=== PATIENT | female | born 1965 | race Caucasian/White ===

== ENCOUNTER 2017-11-07 19:05 | Emergency (ER) | payer BC ==
[~2017-11-07] VITALS: Ht 157.5 cm; Wt 100.0 kg
[2017-11-07 19:07] VITALS: TEMP 98.6
[2017-11-07] MEDS ORDERED: CELEXA 20MG20 MG/TAB PO (19:09)
[2017-11-07] MEDS ORDERED: LATISSE 5 ML5 ML TOP (19:10)
[2017-11-07 19:30] LABS: BASO % 0.3 % (0.0-2.0); EOS # 0.2 (0.0-0.7); EOS % 1.8 % (0-4.0); GRAN # 7.6 (1.4-6.5); GRAN % 63.6 % (42.2-75.2); HEMOGLOBIN 12.6 g/dl (12.5-16.0); LYMPH # 2.9 (1.2-3.4); LYMPH % 24.4 % (20.0-51.0); MEAN CELL VOLUME 98 fl (80.0-100.0); MEAN CORPUSCULAR HEMOGLOBIN 34 pg (27.0-31.0); MEAN CORPUSCULAR HGB CONC 34 g/dl (33.0-37.0); MEAN PLATELET VOLUME 9.8 fl (7.4-10.4); MONO # 1.1 (0.1-0.6); MONO % 9.6 % (1.7-9.3); PLATELET COUNT 437 K/mm3 (130-400); RED BLOOD COUNT 3.75 M/mm3 (4.10-5.30); REDCELL DISTRIBUTION WIDTH-CV 14.3 % (11.5-14.5)
[2017-11-07 19:40] LABS: HEMATOCRIT 36.7 % (37.0-47.0)
[2017-11-07 19:44] LABS: ALBUMIN 3.8 gm/dL (3.5-5.0); BILIRUBIN,TOTAL 0.3 mg/dL (0.0-1.0); CALCIUM 8.7 mg/dL (8.4-10.2); CREATININE, serum 0.69 mg/dL (0.52-1.25)
[2017-11-07 22:32] VITALS: BP 149/75; PULSE 89
== END 2017-11-07 22:33 | disposition home or self-care (01) ==
LOC: COL.ER 19:05
PROVIDERS: Emergency Medicine
DX: R42 Dizziness and giddiness (principal); T67.5XXA Heat exhaustion, unspecified, initial encounter; E66.9 Obesity, unspecified; X30.XXXA Exposure to excessive natural heat, initial encounter
CPT/HCPCS: J7030